=== PATIENT | male | born 2000 | race Caucasian/White ===

== ENCOUNTER 2018-04-26 10:40 | Outpatient (CLI) | payer OTHER ==
--- NOTE | 2018-04-26 12:01 | MRI ---
MRI LUMBAR SPINE: DATE: 04/26/18. PROVIDED CLINICAL HISTORY: Lumbar radiculopathy. FINDINGS: Five lumbar vertebral bodies are assumed. Lumbar alignment appears normal. Vertebral body heights a ppear preserved. No focal concerning regional marrow signal abnormality is evident. Schmorl's node formation is seen at the superior end plates of L1 and L2. The conus medullaris is normal in signal and terminates at an appropriate level. The visualized extraspinal soft tissues appear unremarkable. There is no significant central canal or foraminal narrowing apparent throughout. IMPRESSION: No evidence for central canal or foraminal narrowing. Schmorl's node formation involving the upper l umbar spine as above. POS: [facility]
== END 2018-04-26 10:41 | disposition home or self-care (01) ==
LOC: TBSIIMAG 10:40
PROVIDERS: ATTEND Neurological Surgery
DX: M54.16 Radiculopathy, lumbar region (principal); M51.46 Schmorl's nodes, lumbar region
CPT/HCPCS: 72148